=== PATIENT | male | born 1970 | race Caucasian/White ===

== ENCOUNTER → 2017-03-26 | Outpatient (CLI) | payer BC ==
--- NOTE | 2017-03-26 09:29 | XR ---
EXAMINATION TYPE: XR chest 2V DATE OF EXAM: 03/26/2017 COMPARISON: NONE TECHNIQUE: PA and lateral views submitted. HISTORY: Shortness of breath and cough FINDINGS: The lungs are clear and there is no pneumothorax, pleural effusion, or focal pneumonia. Hyperinflat ion suggests COPD. Degenerative change of the spine noted IMPRESSION: 1. No acute process.
== END | disposition home or self-care (01) ==
LOC: RADXRYALE 08:54
PROVIDERS: ATTEND Physician Assistant
DX: J80 Acute respiratory distress syndrome (principal)
CPT/HCPCS: 71046

== ENCOUNTER 2018-10-30 11:05 | Emergency (ER) | payer OTHER ==
[2018-10-30 11:17] VITALS: RESP 18; TEMP 98.1
[2018-10-30] MEDS ORDERED: SODIUM CHLORIDE 0.9% 500 ML 500 ML IV ONE (12:11)
--- NOTE | 2018-10-30 12:38 | ED ---
General Adult HPI - General Chief complaint: Back Pain/Injury Stated complaint: pain in back/testicle Time Seen by Provider: 10/30/18 11:15 Source: patient, RN notes reviewed Mode of arrival: ambulatory Limitations: no limitations - History of Present Illness Initial comments: This is a 48-year-old male presents emergency department stating that over the weekend he did quite a bit of work in his lower back was hurting him. Patient states the right side of her back hurt more than the left. Patient states the pain however this morning started radiating around the side and going down into his testicle. Patient denies any hematuria or dysuria or urinary frequency. Patient states the right lower quadrant of his abdomen also is tender. Patient states hitting bumps in the road on the way here seems to have increased Pain. Patient states bending over also seems to increase the pain there. Patient denies any numbness or weakness in the lower extremities. Patient denies any swelling or redness or tenderness actually palpating his testicles. Currently the patient states the pain is in the right lower back and radiates to the right lower quadrant and movement definitely hurts the right lower quadrant. - Related Data Home Medications Medication Instructions Recorded Confirmed Fenofibrate 160 mg PO DAILY 10/30/18 10/30/18 Glimepiride [Amaryl] 4 mg PO AC-BID 10/30/18 10/30/18 Ibuprofen [Motrin] 800 mg PO Q6H PRN 10/30/18 10/30/18 Insulin Glargine,Hum.rec.anlog 10 unit SQ HS 10/30/18 10/30/18 [Ronelagldoyle Caruso U-100] Lisinopril 40 mg PO DAILY 10/30/18 10/30/18 Naproxen Sodium [Aleve] 220 mg PO Q12H PRN 10/30/18 10/30/18 Nateglinide [Starlix] 120 mg PO TID 10/30/18 10/30/18 Pioglitazone [Actos] 45 mg PO DAILY 10/30/18 10/30/18 Vitamin B Complex 1 cap PO DAILY 10/30/18 10/30/18 Previous Rx's Medication Instructions Recorded Ibuprofen [Motrin] 600 mg PO Q6HR PRN #20 tab 10/30/18 Allergies Allergy/AdvReac Type Severity Reaction Status Date / Time codeine Allergy Unknown Verified 10/30/18 11:34 Review of Systems ROS Statement: Those systems with pertinent positive or pertinent negative responses have been documented in the HPI. ROS Other: All systems not noted in ROS Statement are negative. Past Medical History Past Medical History: Diabetes Mellitus, Hypertension History of Any Multi-Drug Resistant Organisms: None Reported Additional Past Surgical History / Comment(s): vasectomy Past Psychological History: No Psychological Hx Reported Smoking Status: Current every day smoker Past Alcohol Use History: Rare Past Drug Use History: None Reported General Exam - General Exam Comments Initial Comments: GENERAL: Patient is well-developed and well-nourished. Patient is nontoxic and well- hydrated and is in mild distress. ENT: Neck is soft and supple. No significant lymphadenopathy is noted. Oropharynx is clear. Moist mucous membranes. Neck has full range of motion without eliciting any pain. EYES: The sclera were anicteric and conjunctiva were pink and moist. Extraocular movements were intact and pupils were equal round and reactive to light. Eyelids were unremarkable. PULMONARY: Unlabored respirations. Good breath sounds bilaterally. No audible rales rhonchi or wheezing was noted. CARDIOVASCULAR: There is a regular rate and rhythm without any murmurs gallops or rubs. ABDOMEN: Patient has tenderness in the right lower quadrant there is no rebound. GENITALIA: Scrotum or testicles are not swollen no masses palpated is no area of erythema. Palpating the testicle did not cause any exquisite pain. SKIN: Skin is clear with no lesions or rashes and otherwise unremarkable. NEUROLOGIC: Patient is alert and oriented x3. Cranial nerves II through XII are grossly intact. Motor and sensory are also intact. Normal speech, volume and content. Symmetrical smile. Straight leg test did not cause any back pain however it did seem to cause him some irritation in the right lower quadrant. MUSCULOSKELETAL: Normal extremities with adequate strength and full range of motion. No lower extremity swelling or edema. No calf tenderness. LYMPHATICS: No significant lymphadenopathy is noted PSYCHIATRIC: Normal psychiatric evaluation. Limitations: no limitations Course Vital Signs 10/30/18 10/30/18 11:14 14:56 Temperature 98.1 F Pulse Rate 103 H 72 Respiratory 18 18 Rate Blood Pressure 141/79 133/88 O2 Sat by Pulse 98 100 Oximetry Medical Decision Making - Medical Decision Making CT of the abdomen showed no acute abnormality - Lab Data Result diagrams: 10/30/18 12:20 10/30/18 12:20 Lab Results 10/30/18 10/30/18 10/30/18 Range/Units 12:20 12:20 12:20 WBC 11.3 H (3.8-10.6) k/uL RBC 5.00 (4.30-5.90) m/uL Hgb 14.3 (13.0-17.5) gm/dL Hct 43.4 (39.0-53.0) % MCV 86.8 (80.0-100.0) fL MCH 28.7 (25.0-35.0) pg MCHC 33.1 (31.0-37.0) g/dL RDW 15.1 (11.5-15.5) % Plt Count 382 (150-450) k/uL Neutrophils % 55 % Lymphocytes % 31 % Monocytes % 7 % Eosinophils % 3 % Basophils % 1 % Neutrophils # 6.2 (1.3-7.7) k/uL Lymphocytes # 3.5 (1.0-4.8) k/uL Monocytes # 0.8 (0-1.0) k/uL Eosinophils # 0.4 (0-0.7) k/uL Basophils # 0.1 (0-0.2) k/uL Sodium 138 (137-145) mmol/L Potassium 4.0 (3.5-5.1) mmol/L Chloride 106 (98-107) mmol/L Carbon Dioxide 24 (22-30) mmol/L Anion Gap 8 mmol/L BUN 24 H (9-20) mg/dL Creatinine 0.92 (0.66-1.25) mg/dL Est GFR (CKD-EPI)AfAm >90 (>60 ml/min/1.73 sqM) Est GFR (CKD-EPI)NonAf >90 (>60 ml/min/1.73 sqM) Glucose 114 H (74-99) mg/dL Calcium 9.9 (8.4-10.2) mg/dL Total Bilirubin 0.3 (0.2-1.3) mg/dL AST 18 (17-59) U/L ALT 23 (21-72) U/L Alkaline Phosphatase 45 (38-126) U/L Total Protein 6.7 (6.3-8.2) g/dL Albumin 4.1 (3.5-5.0) g/dL Urine Color Yellow Urine Appearance Clear (Clear) Urine pH 5.0 (5.0-8.0) Ur Specific Whittaker 1.016 (1.001-1.035) Urine Protein Negative (Negative) Urine Glucose (UA) Negative (Negative) Urine Ketones Negative (Negative) Urine Blood Negative (Negative) Urine Nitrite Negative (Negative) Urine Bilirubin Negative (Negative) Urine Urobilinogen <2.0 (<2.0) mg/dL Ur Leukocyte Esterase Negative (Negative) Disposition Clinical Impression: Strain of lumbar region Disposition: HOME SELF-CARE Condition: Good Instructions (If sedation given, give patient instructions): Low Back Strain (ED) Prescriptions: Ibuprofen [Motrin] 600 mg PO Q6HR PRN #20 tab PRN Reason: For pain Is patient prescribed a controlled substance at d/c from ED?: No Referrals: Jordon Marques DO [Primary Care Provider] - 1-2 days Time of Disposition: 15:35
[2018-10-30 12:51] LABS: Basophils # (A) 0.1 k/uL (0-0.2); Basophils % (A) 1 %; Eosinophils # (A) 0.4 k/uL (0-0.7); Eosinophils % (A) 3 %; HCT 43.4 % (39.0-53.0); HGB 14.3 gm/dL (13.0-17.5); Lymphocytes # (A) 3.5 k/uL (1.0-4.8); Lymphocytes % (A) 31 %; MCH 28.7 pg (25.0-35.0); MCHC 33.1 g/dL (31.0-37.0); MCV 86.8 fL (80.0-100.0); Mean Platelet Volume 6.7; Monocytes # (A) 0.8 k/uL (0-1.0); Monocytes % (A) 7 %; Neutrophils # (A) 6.2 k/uL (1.3-7.7); Neutrophils % (A) 55 %; Platelet Count 382 k/uL (150-450); RDW 15.1 % (11.5-15.5); WBC 11.3 k/uL (3.8-10.6)
[2018-10-30 12:54] LABS: Appearance,Urine Clear (Clear); Bilirubin,Urine Negative (Negative); Blood,Urine Negative (Negative); Color,Urine Yellow; Glucose,Urine (UA) Negative (Negative); Ketones,Urine Negative (Negative); Leukocyte Esterase,Urine Negative (Negative); Nitrite,Urine Negative (Negative); Protein,Urine Negative (Negative); Specific Gravity,Urine 1.016 (1.001-1.035); Urobilinogen,Urine <2.0 mg/dL (<2.0)
[2018-10-30 13:10] LABS: ALT 23 U/L (21-72); AST 18 U/L (17-59); African American GFR (CKD) >90 (>60 ml/min/1.73 sqM); Albumin 4.1 g/dL (3.5-5.0); Alkaline Phosphatase 45 U/L (38-126); Anion Gap 8 mmol/L; Blood Urea Nitrogen 24 mg/dL (9-20); Calcium 9.9 mg/dL (8.4-10.2); Carbon Dioxide 24 mmol/L (22-30); Chloride 106 mmol/L (98-107); Glucose 114 mg/dL (74-99); Sodium 138 mmol/L (137-145); Total Bilirubin 0.3 mg/dL (0.2-1.3); Total Protein 6.7 g/dL (6.3-8.2)
[2018-10-30 14:57] VITALS: PULSE 72
--- NOTE | 2018-10-30 15:27 | CT ---
EXAMINATION TYPE: CT abdomen pelvis w con DATE OF EXAM: 10/30/2018 COMPARISON: None. HISTORY: Right sided flank and testicular pain CT DLP: 2346.4 mGycm, Automated Exposure Control for Dose Reduction was Utilized. CONTRAST: CT scan of the abdomen and pelvis is performed without oral but with IV Contrast, patient injected wi th 100 mL of Isovue 300. FINDINGS: LUNG BASES: No significant abnormality is appreciated. LIVER/GB: Liver is diffusely low-density consistent with fatty infiltration. PANCREAS: No significant abnormality is seen. SPLEEN: No significant abnormality is seen. ADRENALS: No significant abnormality is seen. KIDNEYS: Symmetric cortical medullary uptake and excretion from both kidneys without hydronephrosis s een bilaterally. Occasional scattered pelvic phlebolith. No intraluminal calculus and bladder which i s poorly distended . BOWEL: Suboptimal evaluation of bowel due to lack of enteric contrast. No suspicious small and large bowel dilatation. Appendix within normal limits in the right upper pelvis. Small hiatal hernia is pre sent. PROSTATE/SEMINAL VESICLES: No gross abnormality seen. LYMPH NODES: No greater than 1cm abdominal or pelvic lymph nodes are appreciated. OSSEOUS STRUCTURES: Mild narrowing both hip joints. OTHER: No significant additional abnormality is seen. IMPRESSION: No significant acute finding is seen to account for patient's clinical symptoms of right flank and groin pain.
[2018-10-30] MEDS ORDERED: KETOROLAC 60 MG/2 ML VIAL IVP STA (15:36)
[2018-10-30 16:01] VITALS: BP 122/72
== END 2018-10-30 15:59 | disposition home or self-care (01) ==
LOC: EC 11:05
DX: S39.012A Strain of muscle, fascia and tendon of lower back, initial encounter (principal); E11.9 Type 2 diabetes mellitus without complications; I10 Essential (primary) hypertension; F17.200 Nicotine dependence, unspecified, uncomplicated; Z88.5 Allergy status to narcotic agent; Z79.4 Long term (current) use of insulin; Z79.899 Other long term (current) drug therapy; X50.9XXA Other and unspecified overexertion or strenuous movements or postures, initial encounter; Y93.89 Activity, other specified; Y92.410 Unspecified street and highway as the place of occurrence of the external cause; Z53.8 Procedure and treatment not carried out for other reasons
CPT/HCPCS: 99284; 36415; 80053; 85025; 81003; 74177; Q9967

== ENCOUNTER → 2019-04-14 | Outpatient (CLI) | payer OTHER ==
--- NOTE | 2019-04-15 08:00 | XR ---
EXAMINATION TYPE: XR chest 2V DATE OF EXAM: 04/14/2019 COMPARISON: To 1218 TECHNIQUE: PA and lateral views submitted. HISTORY: Cough FINDINGS: The lungs are clear and there is no pneumothorax, pleural effusion, or focal pneumonia. Hypertrophi c and degenerative changes spine. Mild hypertrophic lesion. Heart size normal. IMPRESSION: 1. No acute process.
== END | disposition home or self-care (01) ==
LOC: RADXRYALE 16:20
PROVIDERS: ATTEND Physician Assistant Medical
DX: R05 Cough (principal)
CPT/HCPCS: 71046

== ENCOUNTER → 2022-12-27 | Outpatient (CLI) | payer OTHER ==
--- NOTE | 2022-12-28 09:00 | XR ---
EXAMINATION TYPE: XR chest 2V DATE OF EXAM: 12/27/2022 COMPARISON: 04/14/1999 TECHNIQUE: PA and lateral views submitted. HISTORY: Cough and FINDINGS: The lungs are clear and there is no pneumothorax, pleural effusion, or focal pneumonia. Heart size normal and no overt failure. Osseous structures demonstrate hypertrophic and degenerative changes of the spine. Atherosclerotic change aorta. There is linear scarring or atelectasis bases. IMPRESSION: 1. No acute process.
== END | disposition home or self-care (01) ==
LOC: RADXRYALE 16:38
PROVIDERS: ATTEND Physician Assistant Medical
DX: R05.9 Cough, unspecified (principal)
CPT/HCPCS: 71046

== ENCOUNTER 2024-04-09 10:15 | Emergency (ER) | payer OTHER ==
--- NOTE | 2024-04-09 10:32 | ED ---
General Adult HPI - General Stated complaint: fall-knee/arm pain Time Seen by Provider: 04/09/24 10:18 Source: patient, EMS, RN notes reviewed Mode of arrival: EMS Limitations: physical limitation - History of Present Illness Initial comments: 54-year-old male presents emergency department with chief complaint of fall. Patient states he slipped and driveway. Patient states he was at work which he states his left leg twisted outward. Patient states he already wears a knee brace to help and states that he cannot move his left knee complains of severe left knee pain left elbow pain no head injury no loss conscious. Patient offers no other complaints. - Related Data Home Medications Medication Instructions Recorded Confirmed Glimepiride [Amaryl] 4 mg PO BID 10/30/18 04/09/24 Pioglitazone [Actos] 45 mg PO DAILY 10/30/18 04/09/24 lisinopriL 40 mg PO DAILY 10/30/18 04/09/24 Cholecalciferol [Vitamin D3 (25 50 mcg PO DAILY 02/20/21 04/09/24 Mcg = 1000 Iu)] Acetaminophen Tab [Tylenol Tab] 1,000 mg PO Q6HR PRN 04/09/24 04/09/24 Baclofen [Lioresal] 20 - 40 mg PO HS PRN 04/09/24 04/09/24 Celecoxib [CeleBREX] 200 mg PO BID 04/09/24 04/09/24 Insulin Glargine-Yfgn [Semglee 60 unit SQ HS 04/09/24 04/09/24 (Yfgn) Pen] Mv-Min/Folic/K1/Lycopen/Lutein 1 tab PO DAILY 04/09/24 04/09/24 [Centrum Silver Men Tablet] Niacin 500 mg PO BID 04/09/24 04/09/24 Allergies Allergy/AdvReac Type Severity Reaction Status Date / Time codeine Allergy Nausea & Verified 04/09/24 13:43 Vomiting Onumjct-FAJ-KmS Reductase Allergy Severe leg Verified 04/09/24 13:43 Inhibitor cramps Review of Systems ROS Statement: Those systems with pertinent positive or pertinent negative responses have been documented in the HPI. ROS Other: All systems not noted in ROS Statement are negative. Past Medical History Past Medical History: Diabetes Mellitus, Hypertension History of Any Multi-Drug Resistant Organisms: None Reported Additional Past Surgical History / Comment(s): vasectomy Past Psychological History: No Psychological Hx Reported Smoking Status: Current every day smoker Past Alcohol Use History: Rare Past Drug Use History: None Reported General Exam Limitations: no limitations General appearance: alert, in no apparent distress Head exam: Present: atraumatic, normocephalic, normal inspection Neck exam: Present: full ROM. Absent: tenderness Respiratory exam: Present: normal lung sounds bilaterally. Absent: respiratory distress, wheezes, rales, rhonchi, stridor Cardiovascular Exam: Present: regular rate, normal rhythm, normal heart sounds. Absent: systolic murmur, diastolic murmur, rubs, gallop, clicks Extremities exam: Present: other (Left elbow moderate tenderness no obvious deformity vascular intact no shoulder tenderness no tenderness to left wrist, diffuse tenderness of left knee no proximal femur or distal tib-fib tenderness.) Back exam: Present: full ROM. Absent: tenderness Neurological exam: Present: alert, oriented X3 Course Vital Signs 04/09/24 04/09/24 10:19 12:48 Temperature 98.6 F Pulse Rate 87 87 Respiratory 20 16 Rate Blood Pressure 142/70 155/81 O2 Sat by Pulse 100 97 Oximetry - Reevaluation(s) Reevaluation #1: 04/09/24 11:39 Orthopedics train conductor was paged at 11:13 Reevaluation #2: 04/09/24 12:23 Case discussed with orthopedics recommends knee immobilizer, CT and possible admission or transfer 04/09/24 14:00 04/09/24 14:00 Reevaluation #3: 04/09/24 14:00 CT reviewed by orthopedics recommends transfer to trauma orthopedics Procedures - Orthopedic Splinting/Casting Injury #1 Side: left Upper Extremity Injury Location: long arm, elbow Upper Extremity Immobilizer: sling/shoulder immobilizer, posterior splint, synthetic pre-padded splint Medical Decision Making - Medical Decision Making Was pt. sent in by a medical professional or institution (, PA, STORY READER, urgent care, hospital, or half-way...) When possible be specific @ -No Did you speak to anyone other than the patient for history (EMS, parent, family, police, friend...)? What history was obtained from this source @ -No Did you review nursing and triage notes (agree or disagree)? Why? @ -I reviewed and agree with nursing and triage notes Were old charts reviewed (outside hosp., previous admission, EMS record, old EKG, old radiological studies, urgent care reports/EKG's, half-way records)? Report findings @ -No old charts were reviewed Differential Diagnosis (chest pain, altered mental status, abdominal pain women, abdominal pain men, vaginal bleeding, weakness, fever, dyspnea, syncope, headache, dizziness, GI bleed, back pain, seizure, CVA, palpatations, mental health, musculoskeletal)? @ -Fall, femur fracture, tibia fracture, radius fracture humerus fracture EKG interpreted by me (3pts min.). @ -None X-rays interpreted by me (1pt min.). @ -X-ray left elbow shows radial head fracture X-ray left knee shows tibial plateau fracture with displacement CT interpreted by me (1pt min.). @CT left knee showing depressed, displaced tibial plateau fracture U/S interpreted by me (1pt. min.). @ -None done What testing was considered but not performed or refused? (CT, X-rays, U/S, labs)? Why? @ -None What meds were considered but not given or refused? Why? @ -None Did you discuss the management of the patient with other professionals (professionals i.e. , PA, STORY READER, lab, RT, psych nurse, social media campaign manager, net software architect, teacher, command center officer, telephonic case manager)? Give summary @ -Discussed case with on-call orthopedics recommends transfer to [facility]. I discussed case and plan, except transfer. Was smoking cessation discussed for >3mins.? @ -No Was critical care preformed (if so, how long)? @ -No Were there social determinants of health that impacted care today? How? (Homelessness, low income, unemployed, alcoholism, drug addiction, transportation, low edu. Level, literacy, decrease access to med. care, detention, rehab)? @ -No Was there de-escalation of care discussed even if they declined (Discuss DNR or withdrawal of care, Hospice)? DNR status @ -No What co-morbidities impacted this encounter? (DM, HTN, Smoking, COPD, CAD, Cancer, CVA, ARF, Chemo, Hep., AIDS, mental health diagnosis, sleep apnea, morbid obesity)? @ -None Was patient admitted / discharged? Hospital course, mention meds given and route, prescriptions, significant lab abnormalities, going to OR and other pertinent info. @ -Transferred to [facility]. Patient presented after slip and fall. Patient has extensive tibial plateau fracture with posterior involvement, probable ACL involvement, depression and displacement Undiagnosed new problem with uncertain prognosis? @ -No Drug Therapy requiring intensive monitoring for toxicity (Heparin, Nitro, Insulin, Cardizem)? @ -No Were any procedures done? @ -No Diagnosis/symptom? @ -Radial head fracture left, tibial plateau fracture left Acute, or Chronic, or Acute on Chronic? @ -Acute Uncomplicated (without systemic symptoms) or Complicated (systemic symptoms)? @ -Complicated Side effects of treatment? @ -No Exacerbation, Progression, or Severe Exacerbation? @ -No Poses a threat to life or bodily function? How? (Chest pain, [place], [place], pneumonia, PE, COPD, DKA, ARF, appy, cholecystitis, CVA, Diverticulitis, Homicidal, Suicidal, threat to staff... and all critical care pts) @ -No - Lab Data Lab Results 04/09/24 Range/Units 13:28 POC Glucose (mg/dL) 201 H (70-110) mg/dL POC Glu Counselor Aid ID Inderjit Moreno Disposition Clinical Impression: Tibial plateau fracture, left, Left radial head fracture, Fall from slipping on ice Disposition: OTHER INSTITUTION NOT DEFINED Condition: Fair Referrals: Jordon Marques DO [Primary Care Provider] - 1-2 days Time of Disposition: 11:30 - Out of Hospital Transfer - Req. Specs Out of Hospital Transfer - Requested Specifics: Other Emergency Center ([facility])
[2024-04-09] MEDS: HYDROmorphone 1 MG/ML 1 ML SYRINGE IVP STA ×2 (10:33→13:49)
--- NOTE | 2024-04-09 11:38 | XR ---
EXAMINATION TYPE: XR elbow complete LT DATE OF EXAM: 04/09/2024 CLINICAL HISTORY: Fall with pain TECHNIQUE: Frontal, lateral and oblique images of the left elbow are obtained. COMPARISON: None FINDINGS: There is acute comminuted slightly displaced intra-articular fracture through the radial h ead. Lateral view is suboptimal with less than 90 degrees extension. There is also 7 mm acute fractur e through the posterior lip of the olecranon seen on lateral view. No elbow dislocation. IMPRESSION: As above. [facility], , 04/09/2024 11:35 AM
--- NOTE | 2024-04-09 11:42 | XR ---
EXAMINATION TYPE: XR knee limited LT DATE OF EXAM: 04/09/2024 CLINICAL HISTORY: Fall with pain TECHNIQUE: Frontal and lateral views of the left knee are obtained. COMPARISON: None. FINDINGS: Osseous structures are demineralized. There is acute comminuted displaced intra-articular fracture involving the lateral portion of the proximal tibial meta-epiphysis. A few small fracture fr agments are likely present. Some height loss is present laterally. There is increased soft tissue den sity in the suprapatellar bursa likely reflecting large joint effusion or hematoma. IMPRESSION: As above. [facility], , 04/09/2024 11:40 AM
[2024-04-09] MEDS ORDERED: HYDROmorphone 0.5 MG/0.5 ML SYRINGE IVP PRN (12:24)
[2024-04-09] MEDS ORDERED: NALOXONE 0.4 MG/ML 1 ML VIAL IV PRN (12:24)
[2024-04-09 13:30] LABS: Glucose,Whole Blood 201 mg/dL (70-110)
--- NOTE | 2024-04-09 13:32 | CT ---
EXAMINATION TYPE: CT knee LT wo con DATE OF EXAM: 04/09/2024 1:25 PM COMPARISON: . Extremity radiograph same day. CLINICAL INDICATION: Male, 54 years old with history of Tibial plateau fracture; PHH, Tibial plateau fracture TECHNIQUE: Axial images were obtained of the CT knee LT wo con, Additional coronal and sagittal refor matted images and soft tissue and bone window were obtained for review. 3-D reconstruction was create d on a separate workstation. Contrast used: mL of , (None if empty) Oral contrast used: (None if empty) CT DLP: 217.8 mGycm, Automated exposure control for dose reduction was used. FINDINGS: There is a comminuted intra-articular tibial plateau fracture predominantly involving the l ateral tibial plateau with depression up to 2.8 cm and 7.9 cm inferiorly into the metadiaphysis regio n. Fracture line does extend across the medial aspect of the tibia without significant disc depressio n of the medial tibia plateau, fracture line exits the most medial aspect of the tibial plateau serie s 204 image 49. There is intercondylar eminence fracture noted. . There is a large lipohemarthrosis p resent. The femur or patella and fibula appear intact.a IMPRESSION: 1. Comminuted tibial plateau fracture with up to 2.8 cm of depression of the lateral tibial plateau and extension into the metadiaphysis region of the tibia. 2. Lipohemarthrosis. [facility], , 04/09/2024 1:30 PM
[2024-04-09] MEDS: HYDROmorphone 1 MG/ML 1 ML SYRINGE IVP PRN (13:47)
[2024-04-09] MEDS: ONDANSETRON 4 MG/2 ML VIAL IVP PRN (13:56)
[2024-04-09 15:47] VITALS: BP 126/70; PULSE 84; RESP 16; TEMP 98.3
== END 2024-04-09 15:47 | disposition other institution (70) ==
LOC: EC 10:15
DX: S82.142A Displaced bicondylar fracture of left tibia, initial encounter for closed fracture (principal); S52.122A Displaced fracture of head of left radius, initial encounter for closed fracture; M25.562 Pain in left knee; F17.200 Nicotine dependence, unspecified, uncomplicated; Z88.5 Allergy status to narcotic agent; Z88.8 Allergy status to other drugs, medicaments and biological substances; W00.0XXA Fall on same level due to ice and snow, initial encounter; Y99.0 Civilian activity done for income or pay
CPT/HCPCS: 99285; 29105; 96374; 96375 ×2; 96376; 36415; 73080; 73560; 73700; J3360; J2405; J1171